=== PATIENT | female | born 1980 | race Caucasian/White ===

== ENCOUNTER 2016-11-21 01:55 | Emergency (ER) | payer MEDICAID ==
[~2016-11-21 01:55] MED LIST: ACETAMINOPHEN650 M1 PO; ACULAR10 ML OP; AMOXICILLIN500 M1 PO; BACTRIM DS TABL1 TA1; BACTRIM DS TABL1 TA1 PO; BACTRIM DS TABL1 TA2 PO; CELEXA20 MG PO; CILOXAN3.5 GM OP; CYMBALTA30 MG PO; DAPTOMYCIN; DAPTOMYCIN IV; HYDROCODON-ACE1 EAC5 PO; HYDROCODONE/APA1 T16 PO; KEFLEX500 M1; KEFLEX500 M1 PO; KEFLEX500 MG PO; LORTAB 7.5-3251 EACH PO; METHADONE PO; METHADOSE PO; MOBIC15 MG PO; MOTRIN400 M1 PO; NEURONTIN300 MG PO; NO MEDICATIONS; PHENERGAN PO; TYLENOL #3 PO; ULTRAM PO; VOLTAREN50 MG PO; VOLTAREN75 MG PO; XANAX0.5 MG PO; XANAX1 MG PO
[2016-11-21] MEDS ORDERED: METHADONE (02:04)
[2016-11-21 03:02] LABS: BASOPHIL# 0.1 X10e3 (0-0.3); BASOPHIL% 0.8 % (0-2.5); DIFF IND NO; EOSINOPHIL# 0.4 X10e3 (0-0.7); EOSINOPHIL% 5.6 % (0.0-7.0); HEMATOCRIT 33.6 % (35.0-45.0); HEMOGLOBIN 10.7 gm/dL (12.0-16.0); LYMPHOCYTE# 1.6 X10e3 (1.0-3.5); LYMPHOCYTE% 22.7 % (17.0-45.0); MEAN CELL VOLUME 80.2 FL (83-96); MEAN CORPUSCULAR HEMOGLOBIN 25.6 PG (28-34); MEAN CORPUSCULAR HGB CONC 31.9 g/dL (30-36); MEAN PLATELET VOLUME 8.1 FL (6.5-11.5); MONOCYTE# 0.5 X10e3 (0-1.0); MONOCYTE% 7.6 % (3.0-12.0); NEUTROPHIL# 4.4 X10e3 (1.5-7.1); NEUTROPHIL% 63.3 % (40-75); PLATELET COUNT 237 X10e3 (140-420); RED BLOOD COUNT 4.19 X10e (3.90-5.30); RED CELL DISTRIBUTION WIDTH 19.1 % (11.0-15.5)
[2016-11-21 03:19] LABS: BUN/CREATININE RATIO 12.85; CALCIUM SERUM 8.2 mg/dL (8.4-10.2); CREATININE SERUM 0.7 mg/dL (0.6-1.4); GLOM FILT RATE Estimated 112.3 mL/min (>60); POTASSIUM 4.2 mmol/L (3.5-5.1)
== END 2016-11-21 04:20 | disposition home or self-care (01) ==
LOC: SED 01:55
PROVIDERS: Emergency Medicine
DX: M79.89 Other specified soft tissue disorders (principal); F17.200 Nicotine dependence, unspecified, uncomplicated
CPT/HCPCS: 36415; 80048; 85025; 96365; 96366; 96368; 99284; 99285

== ENCOUNTER 2016-12-16 10:28 | Emergency (ER) | payer MEDICAID ==
[~2016-12-16 10:28] MED LIST changes: +METHADONE
[2016-12-16] MEDS ORDERED: METHADONE PO (10:32)
== END 2016-12-16 11:17 | disposition home or self-care (01) ==
LOC: SED 10:28
DX: L03.112 Cellulitis of left axilla (principal); F17.210 Nicotine dependence, cigarettes, uncomplicated
CPT/HCPCS: 99283

== ENCOUNTER 2016-12-25 18:09 | Emergency (ER) | payer MEDICAID | END 2016-12-25 19:10 | disposition home or self-care (01) | LOC: SED 18:09 | DX: L03.114 Cellulitis of left upper limb (principal); L03.113 Cellulitis of right upper limb; Z79.899 Other long term (current) drug therapy; F17.200 Nicotine dependence, unspecified, uncomplicated | CPT/HCPCS: 96372; 99283 ==